=== PATIENT | male | born 1960 | race Caucasian/White ===

== ENCOUNTER 2019-06-29 04:05 | Emergency (ER) | payer SELFPAY ==
--- NOTE | ~2019-06-29 | CT_ITS ---
EXAMINATION: CT abdomen pelvis wo con DATE: 06/29/2019 04:51 INDICATION: Left lower quadrant abdominal pain. Nausea and vomiting. TECHNIQUE: Computed tomography (CT) of the abdomen and pelvis was performed without intravenous contr ast. Automated exposure control and iterative reconstruction technique were employed. The dose-length product was 522.68 mGy-cm. COMPARISON: CT abdomen and pelvis 02/23/2012 FINDINGS: The visualized portions of the lung bases demonstrate mild atelectasis. There is a 4 mm nod ule in right middle lobe, likely benign. No pleural effusion. The heart size is normal. No pericardia l effusion. There is a small sliding hiatal hernia. A calcification in the liver is consistent with o ld granulomatous disease. The gallbladder, spleen, pancreas, and adrenal glands are normal. There is a 1.4 cm cyst in right kidney. There is mild left hydronephrosis. There is a 6 mm stone in proximal l eft ureter. The prostate is mildly enlarged. There is diverticulosis of the colon without evidence of diverticulitis. The appendix is not visualized. There are no pathologically enlarged lymph nodes. Th ere is no free intraperitoneal fluid. 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 T here is mild thoracolumbar spondylosis. IMPRESSION: 1. 6 mm stone in proximal left ureter with mild left hydronephrosis. 2. Small sliding hiatal hernia. Reviewed, dictated and finalized at location A. [employer]
[2019-06-29 04:13] VITALS: BP 165/83; PULSE 75; RESP 18; TEMP 36.1; O2SAT 100
[2019-06-29 04:23] VITALS: BP 173/103; PULSE 74; RESP 20; TEMP 37.1; O2SAT 99
[2019-06-29 04:33] LABS: Basophils Absolute Auto 0.1 K/mm3 (0.0-0.1); Basophils Percent Auto 0.5 % (0.2-1.2); Eosinophils Absolute Auto 0.1 K/mm3 (0-0.3); Eosinophils Percent Auto 0.9 % (0-4.4); Hematocrit 43.7 % (42.0-52.0); Hemoglobin 14.7 g/dL (14.0-18.0); Immature Granulocyte Absolute 0.03 K/mm3 (0.00-0.031); Immature Granulocyte Percent A 0.2 % (0-0.5); Lymphocytes Absolute Auto 0.98 K/mm3 (0.9-3.2); Lymphocytes Percent Auto 6.9 % (18.3-44.2); Mean Corpuscular HGB Conc 33.6 g/dl (32-36); Mean Corpuscular Hemoglobin 30.8 pg (26-34); Mean Corpuscular Volume 91.4 fl (80-100); Mean Platelet Volume 10.1 fl (7.4-10.4); Monocytes Absolute Auto 1.1 K/mm3 (0.1-0.6); Neutrophils Absolute Auto 11.8 K/mm3 (1.3-6.7); Neutrophils Percent Auto 83.5 % (45.5-73.1); Platelet Count Result 285 k/mm3 (150-375); Red Blood Count 4.78 M/mm3 (4.6-6.20); Red Cell Distribution Width 13.3 % (11.5-14.5); White Blood Count 14.1 K/mm3 (4.5-10.0)
[2019-06-29] MEDS: ONDANSETRON INJ 4 MG/2 ML VIAL IV PUSH (04:43)
[2019-06-29] MEDS: HYDROMORPHONE HCL 1 MG/ML INJ 0.5 MG IV PUSH (04:43)
[2019-06-29 04:48] LABS: Alanine Aminotransferase 28 U/L (4-50); Albumin Level 4.5 g/dL (3.5-5.1); Alkaline Phosphatase 62 U/L (38-126); Aspartate Amino Transferase 26 U/L (17-59); Bilirubin,Total 1.1 mg/dL (0.2-1.3); Blood Urea Nitrogen 17 mg/dL (9-20); Calcium 9.4 mg/dL (8.4-10.2); Carbon Dioxide 24 mmol/L (22-30); Chloride 108 mmol/L (98-107); Estimated CRCL calculation 79 ml/min; Estimated Glomerular Filt Rate > 60; Glucose 152 mg/dL (75-110); Lipase 55 U/L (23-300); Potassium 3.8 mmol/L (3.4-5.0); Sodium 139 mmol/L (137-145)
--- NOTE | 2019-06-29 05:12 | ED.ABDPAIN ---
HPI - Abdominal Pain General Chief Complaint: Abdominal Pain Stated Complaint: abd pain Time Seen by Provider: 06/29/19 04:17 Source: patient Mode of arrival: ambulatory Limitations: no limitations History of Present Illness HPI narrative: 58-year-old with no major medical problems here with complaints of left-sided abdominal pain since last 2 days however in the middle of the night it got worse. Patient states that pain is radiating from lower back. He also complains of intense nausea and vomiting. Denies any fever or chills. No previous history of kidney stones. MD elicited complaint: abdominal pain Pertinent past history: none Onset (ago): day(s) (2) Location: LLQ Severity: severe Quality: stabbing Radiation: back Exacerbating factors: nothing Relieving factors: nothing Associated symptoms: nausea and vomiting Related Data Allergies Allergy/AdvReac Type Severity Reaction Status Date / Time No Known Allergies Allergy Verified 02/23/12 11:05 Review of Systems Review of Systems: All systems reviewed & are unremarkable except as noted in HPI and below Constitutional: Constitutional: Reports no additional constitutional complaints Eyes: Eyes: Reports no additional eye complaints ENT: Reports system reviewed and no additional complaints, except as documented Cardiovascular: Cardiovascular: Reports no additional cardiovascular complaints Respiratory: Respiratory: Reports no additional respiratory complaints Gastrointestinal: Gastrointestinal: Reports abdominal pain, Reports nausea and Reports vomiting Genitourinary: Genitourinary: Reports no additional male genitourinary complaints Musculoskeletal: Musculoskeletal: Reports no additional musculoskeletal complaints [facility] Social History Social History Gender identity (if verbalized by the patient): Male Exam Const: General: no acute distress and alert Orientation/consciousness: patient oriented x3 HENMT: Head: normal to inspection Eyes: Conjunctivae: conjunctivae normal Pupils: Equal, round and reactive pupils present EOM: EOMs intact bilaterally Chest: Chest palpation & inspection: normal inspection of the chest Resp: Effort & Inspection: normal respiratory effort Auscultation: clear to auscultation bilaterally Cardio: Rate: regular rate Rhythm: regular rhythm GI: GI Palp: Yes Soft to palpation Auscultation: normal bowel sounds Back/Spine/Pelvis: Back: no CVA tenderness Skin: General skin exam: normal color Neuro: General: patient oriented x3 and moves all extremities Extrem: General: normal to inspection Course Course Emergency Course: Informed patient about his lab work, CT findings. His pain at this time is much improved. Vital Signs Vital signs: Vital Signs Temperature 36.1 C L 06/29/19 04:13 Pulse Rate 75 06/29/19 04:13 Respiratory Rate 18 06/29/19 04:13 Blood Pressure 165/83 H 06/29/19 04:13 Pulse Oximetry 100 06/29/19 04:13 Temperature 37.1 C 06/29/19 04:23 Pulse Rate 74 06/29/19 04:23 Respiratory Rate 20 06/29/19 04:23 Blood Pressure 173/103 H 06/29/19 04:23 Pulse Oximetry 99 06/29/19 04:23 MDM - Abdominal Pain Differential Diagnosis Differential diagnosis: Likely calculus of kidney, constipation and diverticulitis Lab Data Result diagrams: 06/29/19 04:25 06/29/19 04:25 Labs: Lab Results 06/29/19 06/29/19 Range/Units 04:25 04:25 WBC 14.1 H (4.5-10.0) K/mm3 RBC 4.78 (4.6-6.20) M/mm3 Hgb 14.7 (14.0-18.0) g/dL Hct 43.7 (42.0-52.0) % MCV 91.4 (80-100) fl MCH 30.8 (26-34) pg MCHC 33.6 (32-36) g/dl RDW 13.3 (11.5-14.5) % Plt Count 285 (150-375) k/mm3 MPV 10.1 (7.4-10.4) fl Immature Gran % (Auto) 0.2 (0-0.5) % Neut % (Auto) 83.5 H (45.5-73.1) % Lymph % (Auto) 6.9 L (18.3-44.2) % [place] % (Auto) 8.0 (2.6-8.5) % Eos % (Auto) 0.9 (0-4.4) % Baso % (Auto) 0.5 (0.2-1.2) % Lymph # (Auto)
[2019-06-29] MEDS: SODIUM CHLORIDE 0.9% IV 1,000 ML 150 ML IV CONT (05:18)
[2019-06-29 06:03] LABS: Add Urine Microscopic? YES; Appearance Urine Clear (Clear); Bilirubin Urine Negative (Negative); Blood Urine 2+ (Negative); Color Urine Yellow (Yellow); Glucose Urine UA 1+ mg/dL (Negative); Ketones Urine 2+ mg/dL (Negative); Leukocyte Esterase Ur Negative LEU/UL (Negative); Mucus Urine Rare /lpf; Nitrate Urine Negative (Negative); Protein Urine Negative (Negative); RBC Urine 21-50 /hpf (0-2); Specific Grav Ur 1.023 (1.001-1.035); Squamous Epithelial Cell Urine Rare /hpf (Few); Urobilinogen Urine Negative mg/dL (<2.0)
== END 2019-06-29 05:54 | disposition home or self-care (01) ==
PROVIDERS: Emergency Provider Family Medicine
DX: N13.2 Hydronephrosis with renal and ureteral calculous obstruction (principal)
CPT/HCPCS: 36415; 74176; 80053; 81001; 83690; 85025; 96361; 96374; 96375; 99284; J1170; J2405; J7030